=== PATIENT | male | born 1955 | race Hispanic/Latino ===

== ENCOUNTER 2020-11-19 10:34 | Inpatient (IN) | payer SELFPAY ==
--- NOTE | 2020-11-19 11:19 | RAD ---
Chest AP view INDICATION: History of Covid positive status with chest pain COMPARISON: None FINDINGS: Lungs: There is bilateral airspace opacities suspicious for multifocal pneumonia. Cardiac silhouette: The cardiomediastinal silhouette appears within normal limits. Pulmonary vasculature: Normal Pleural spaces: No pleural effusion or pneumothorax is demonstrated. Upper abdomen: No abnormality seen. Osseous structures: No acute osseous abnormality. Additional findings: None. IMPRESSION: Bilateral pneumonia
[2020-11-19] MEDS ORDERED: Acetaminophen 500 MG TAB ONE (11:24)
[2020-11-19 11:48] LABS: #Basophils 0.1 thou/uL (0.0-0.2); #Monocytes 0.2 thou/uL (0.11-0.59); #Neutrophils 9.6 thou/uL (1.40-6.50); %Basophils 0.5 % (0.0-1.0); %Eosinophils 0.1 % (0.0-10.0); %Lymphocytes 9.5 % (21.0-51.0); %Monocytes 2.2 % (0.0-10.0); %Neutrophils 87.7 % (42.0-75.0); Hemoglobin 16.6 g/dL (14.0-18.0); Mean Corpuscular HGB CONC 33.8 g/dL (32.0-36.0); Mean Corpuscular Hemoglobin 30.8 pg (27.0-31.0); Mean Corpuscular Volume 91.1 fL (78.0-98.0); Mean Platelet Volume 8.1 fL (7.4-10.4); Platelet Count 318 thou/uL (130-400); White Blood Cell (WBC) Count 10.9 thou/uL (4.8-10.8)
[2020-11-19 12:06] LABS: ALT (SGPT) 42 U/L (8-55); AST (SGOT) 52 U/L (5-34); Albumin 3.5 g/dL (3.4-4.8); Alkaline Phosphatase 132 U/L (40-110); Anion Gap 15 mmol/L (10-20); BUN (Urea Nitrogen) 17 mg/dL (8.4-25.7); Bilirubin, Total 0.6 mg/dL (0.2-1.2); Calc. Creatinine Clearance 0 mL/min (70-130); Calcium 8.6 mg/dL (7.8-10.44); Carbon Dioxide 24 mmol/L (23-31); Chloride 102 mmol/L (98-107); Globulin 3.7 g/dL (2.4-3.5); Glucose 139 mg/dL (80-115); Potassium 3.9 mmol/L (3.5-5.1); Protein, Total 7.2 g/dL (5.8-8.1); Sodium 137 mmol/L (136-145)
[2020-11-19] MEDS ORDERED: Aspirin Chewable 81 MG TAB ONE (12:19)
[2020-11-19] MEDS ORDERED: Iopamidol-370 76% 500 ML 1 ML ONE (14:07)
[2020-11-19] MEDS ORDERED: Azithromycin 500 MG VIAL ONE (14:54)
[2020-11-19] MEDS ORDERED: cefTRIAXone\\ROCEPHIN 2 GM VIAL ONE (14:54)
[2020-11-19] MEDS ORDERED: Dexamethasone 10 MG/ML VIAL ONE (14:54)
--- NOTE | 2020-11-19 16:18 | PDOC.HHP ---
Hospitalist HPI Covid History of Present Illness: Patient is a 65-year-old male who apparently tested positive for Covid 12 days ago. He reports he has had some cough with phlegm. He has had one episode of fever with a temperature of 100 degrees. Today the patient presented to the emergency department.'s been challenging to elucidate exactly why he presented to the emergency department. Sounds like he may have had some trouble with swallowing and some discomfort in his chest. He reports that he feels very hungry all the time but when he tries to swallow he has some difficulty taking in very much. Again having a very difficult time elucidating from him even with the help of a global account executive whether this is because of a mechanical type problem or if it is because he has something like nausea. He absolutely denies feeling short of breath. He has no dyspnea on exertion. 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 He has no shortness of breath with doing his job. ED Course: In the ER the patient had a chest x-ray revealing bilateral Covid pneumonia. Initially the plan was for discharge however at shift change the subsequent physician entered the room finding the patient with O2 sats in the 80s. He was subsequently placed on oxygen. Allergies/Adverse Reactions: Allergy/AdvReac Type Severity Reaction Status Date / Time No Known Allergies Allergy Unverified 11/19/20 16:32 Comments: No home medications Past History: PMHx: None PSHx: None FHx: Noncontributory Social: History of smoking but he has not smoked in over 30 years. Quit drinking alcohol 1 year ago. He is . Hospitalist HPI ROS Constitutional: reports: fever. denies: chills Respiratory: reports: cough. denies: shortness of breath, SOB with excertion Cardiovascular: reports: chest pain (Feels like an internal soreness) Gastrointestinal: denies: nausea, vomiting, abdominal pain, diarrhea, constipation All other systems reviewed; all pertinent +/- noted in HPI/Subj Hospitalist Exam General Appearance: NAD, awake alert Eye: PERRL, anicteric sclera ENT: normocephalic atraumatic, no oropharyngeal lesions, moist mucosa Neck: supple, symmetric, no JVD, no thyromegaly, no lymphadenopathy, no carotid bruit Heart: RRR, no murmur, no gallops, no rubs, normal peripheral pulses Respiratory: no wheezes, no ronchi, rales (Mild in the right base) Gastrointestinal: soft, non-tender, non-distended, normal bowel sounds, no palpable masses, no hepatomegaly, no splenomegaly, no bruit Extremities: no cyanosis, no clubbing, no edema Skin: normal turgor, no lesions, no rashes Neurological: no focal deficits Musculoskeletal: normal tone, normal strength, no muscle wasting Hospitalist Results Result Diagrams: 11/19/20 10:46 11/19/20 10:46 Lab results: Laboratory Last Values WBC 10.9 thou/uL (4.8-10.8) H 11/19/20 10:46 RBC 5.40 mill/uL (4.70-6.10) 11/19/20 10:46 Hgb 16.6 g/dL (14.0-18.0) 11/19/20 10:46 Hct 49.2 % (42.0-52.0) 11/19/20 10:46 MCV 91.1 fL (78.0-98.0) 11/19/20 10:46 MCH 30.8 pg (27.0-31.0) 11/19/20 10:46 MCHC 33.8 g/dL (32.0-36.0) 11/19/20 10:46 RDW 12.0 % (11.5-14.5) 11/19/20 10:46 Plt Count 318 thou/uL (130-400) 11/19/20 10:46 MPV 8.1 fL (7.4-10.4) 11/19/20 10:46 Neutrophils % 87.7 % (42.0-75.0) H 11/19/20 10:46 Lymphocytes % 9.5 % (21.0-51.0) L 11/19/20 10:46 Monocytes % 2.2 % (0.0-10.0) 11/19/20 10:46 Eosinophils % 0.1 % (0.0-10.0) 11/19/20 10:46 Basophils % 0.5 % (0.0-1.0) 11/19/20 10:46 Neutrophils # 9.6 thou/uL (1.40-6.50) H 11/19/20 10:46 Lymphocytes # 1.0 thou/uL (1.20-3.40) L 11/19/20 10:46 Monocytes # 0.2 thou/uL (0.11-0.59) 11/19/20 10:46 Eosinophils # 0.0 thou/uL (0.0-0.7) 11/19/20 10:46 Basophils # 0.1 thou/uL (0.0-0.2) 11/19/20 10:46 D-Dimer 0.75 *mcg/mL (0.27-0.43) H 11/19/20 10:46 Sodium 137 mmol/L (136-145) 11/19/20 10:46 Potassium 3.9 mmol/L (3.5-5.1) 11/19/20 10:46 Chloride 102 mmol/L (98-107) 11/19/20 10:46 Carbon Dioxide 24 mmol/L (23-31) 11/19/20 10:46 Anion Gap 15 mmol/L (10-20) 11/19/20 10:46 BUN 17 mg/dL (8.4-25.7) 11/19/20 10:46 Creatinine 1.03 mg/dL (0.7-1.3) 11/19/20 10:46 Estimated GFR (MDRD) 73 11/19/20 10:46 Glucose 139 mg/dL (80-115) H 11/19/20 10:46 Calcium 8.6 mg/dL (7.8-10.44) 11/19/20 10:46 Total Bilirubin 0.6 mg/dL (0.2-1.2) 11/19/20 10:46 AST 52 U/L (5-34) H 11/19/20 10:46 ALT 42 U/L (8-55) 11/19/20 10:46 Alkaline Phosphatase 132 U/L (40-110) H 11/19/20 10:46 Troponin I Less than 0.010 ng/mL (< 0.028) 11/19/20 10:46 B-Natriuretic Peptide Less than 10.0 pg/mL (0-100) 11/19/20 10:46 Serum Total Protein 7.2 g/dL (5.8-8.1) 11/19/20 10:46 Albumin 3.5 g/dL (3.4-4.8) 11/19/20 10:46 Globulin 3.7 g/dL (2.4-3.5) H 11/19/20 10:46 Albumin/Globulin Ratio 0.9 g/dL (1.2-2.2) L 11/19/20 10:46 Chest x-ray Status: report reviewed by me (Findings consistent with Covid pneumonia) EKG Status: image reviewed by me (Left anterior fascicular block with pulmonary disease pattern. Sinus rhythm. Nonischemic.) Hospitalist H&P A/P (1) Acute respiratory failure with hypoxia Code(s): J96.01 - ACUTE RESPIRATORY FAILURE WITH HYPOXIA Status: Acute (2) Pneumonia due to COVID-19 virus Code(s): U07.1 - COVID-19; J12.82 - PNEUMONIA DUE TO CORONAVIRUS DISEASE 2019 Status: Acute (3) Chest pain Code(s): R07.9 - CHEST PAIN, UNSPECIFIED Status: Acute Plan: Patient is a 62-year-old male who presented to the hospital approximately 12 days after testing positive for COVID-19. Difficult to ascertain exactly why he came today. Sounds like he is having some chest discomfort and phlegm production. He also reports some difficulty with swallowing but details have been difficult to obtain regarding that as well. Acute respiratory failure with hypoxia: Secondary to COVID-19 pneumonia. Patient has fairly dense infiltrate in his right lung on his chest x-ray. He initially was not significantly hypoxic and denies any shortness of breath even on exertion. He was noted to be hypoxic with O2 sats in the 80s by one of the ED physicians. He subsequently been started on oxygen therapy. Will monitor overnight and see if he can be weaned off the oxygen. Patient himself was quite surprised that he had hypoxia found. COVID-19 pneumonia: Patient was well outside the window for any antiviral interventions. We will check inflammatory markers. Decadron. Patient received antibiotics in the ER however I will not continue those at this time. Patient does have a CTA of the chest pending due to mildly elevated D-dimer. Further decisions on antibiotics could be made pending the results of that. Dysphagia: Again details are difficult to ascertain. Unclear if the patient is truly having a mechanical issue or if it simply more of a nausea or visceral reaction to eating. We will hydrate him overnight and assess his swallow. If it does appear to be more mechanical will consult GI. We will ask speech therapy to see him in the meantime. Chest pain: Sounds like this is more related to the Covid and cough. Will obtain serial enzymes and keep him on telemetry.
--- NOTE | 2020-11-19 16:33 | CT ---
CT ANGIOGRAM THORAX WITH IV CONTRAST AND 3-D RECONSTRUCTIONS CLINICAL INDICATION: Covid positive. Elevated d-dimer. Worsening shortness of breath. COMPARISON: None FINDINGS: Pulmonary arteries: No filling defects are seen in the pulmonary arteries to suggest a pulmonary embo rica. Aorta: Minimal vascular calcifications are seen in thoracic aorta. Thoracic aorta is normal in calibe r. Lungs: There are diffuse patchy and confluent groundglass densities seen throughout the lungs bilater ally greater on the right in a pattern most suggestive of Covid pneumonia. No pleural effusion is identified. The large airways appear patent. Mediastinum: The heart is mildly enlarged. Enlarged mediastinal and hilar lymph nodes are seen. Large st lymph node is seen in a subcarinal location measuring 1.3 cm in short axis dimension. Lymph nodes are likely reactive in origin. Thyroid gland: Normal CT appearance. Osseous structures: No suspicious lytic or sclerotic osseous lesion. Chest wall: No abnormality visualized. Upper abdomen: Within normal limits for phase of imaging. IMPRESSION: 1. Covid pneumonia with diffuse groundglass densities throughout the lungs bilaterally greater on the right. 2. No CT evidence of a pulmonary embolus. 3. Mediastinal and hilar lymphadenopathy likely reactive in origin. 4. Mild cardiomegaly
[2020-11-19 17:14] LABS: SARS-CoV-2 NAA Rapid Test DETECTED (NotDetected)
[2020-11-19] MEDS: Sodium Chloride 0.9% 1,000 ML IV SCH (19:41)
[2020-11-20 01:40] LABS: Troponin I Less than 0.010 ng/mL (< 0.028)
[2020-11-20 05:16] LABS: #Lymphocytes 0.8 thou/uL (1.20-3.40); #Monocytes 0.2 thou/uL (0.11-0.59); #Neutrophils 9.5 thou/uL (1.40-6.50); %Basophils 0.1 % (0.0-1.0); %Eosinophils 0.1 % (0.0-10.0); %Lymphocytes 7.5 % (21.0-51.0); %Monocytes 2.1 % (0.0-10.0); %Neutrophils 90.2 % (42.0-75.0); Mean Corpuscular HGB CONC 32.3 g/dL (32.0-36.0); Mean Corpuscular Hemoglobin 29.5 pg (27.0-31.0); Mean Corpuscular Volume 91.3 fL (78.0-98.0); Mean Platelet Volume 8.3 fL (7.4-10.4); Platelet Count 317 thou/uL (130-400); Red Blood Cell (RBC) Count 5.43 mill/uL (4.70-6.10); White Blood Cell (WBC) Count 10.5 thou/uL (4.8-10.8)
[2020-11-20 05:39] LABS: Anion Gap 15 mmol/L (10-20); BUN (Urea Nitrogen) 14 mg/dL (8.4-25.7); Calc. Creatinine Clearance 90 mL/min (70-130); Carbon Dioxide 22 mmol/L (23-31); Chloride 108 mmol/L (98-107); Glucose 205 mg/dL (80-115); Potassium 4.5 mmol/L (3.5-5.1); Sodium 140 mmol/L (136-145)
[2020-11-20] MEDS: Sodium Chloride 0.9% 1,000 ML IV SCH (06:39)
[2020-11-20] MEDS ORDERED: Dexamethasone 4 MG TAB PO SCH (08:00)
[2020-11-20] MEDS ORDERED: FLU VACC QS2020-21(6MOS UP)/PF 60 MCG/0.5 ML SYRINGE IM ONE (09:00)
[2020-11-20] MEDS: Enoxaparin Sodium 40 MG/0.4 ML SYRINGE SC SCH (10:23)
--- NOTE | 2020-11-20 11:25 | PDOC.HOSPP ---
- Subjective Encounter Date: 11/20/20 Encounter Time: 10:00 Subjective: F/u: COVID The patient feels much better. He states his back pain and leg cramps have resolved. He is able to walk now with assistance. He did lose his taste yesterday but his appetite has improved now . I weaned him down to room air and after five minutes his oxygen sat dropped down to 88 while he was sitting up and took a while to recover despite deep breaths. He was placed back on 2.5-3L . When his oxygen dropped, he reported chest heaviness Per nurse, he has some blood tinged sputum Pt states he hasn't seen a doctor in years, [place] - Objective Vital Signs & Weight: Vital Signs (12 hours) Temp Pulse Resp BP Pulse Ox 11/20/20 09:00 99.1 F 76 28 H 113/56 L 90 L 11/20/20 05:00 98.2 F 84 24 H 123/70 94 L 11/20/20 00:12 98.1 F 74 16 110/67 94 L Weight Weight 154 lb I&O: 11/19/20 11/20/20 11/21/20 06:59 06:59 06:59 Intake Total 760 Output Total 800 Balance 760 -800 Result Diagrams: 11/20/20 04:40 11/20/20 04:40 Additional Labs: Accuchecks 11/20/20 00:16 POC Glucose 190 H Hospitalist ROS - Review of Systems Constitutional: denies: fever, chills Cardiovascular: reports: other (chest heaviness when takes a deep breath) - Medication Medications: Active Medications Generic Name Dose Route Start Last Admin Trade Name Sam PRN Reason Stop Dose Admin Dexamethasone 6 mg 11/20/20 08:00 11/20/20 10:31 Dexamethasone 4 Mg Tab PO 6 mg QAM-WM ROD Administration Enoxaparin Sodium 40 mg 11/20/20 09:00 11/20/20 10:23 Enoxaparin Sodium 40 Mg/0.4 Ml Syringe SC 40 mg 0900 ROD Administration Sodium Chloride 1,000 mls @ 75 mls/hr 11/19/20 16:15 11/20/20 06:39 Normal Saline 0.9% IV 1,000 mls .[id number] ROD Administration Hospitalist Exam Vitals: Vital Signs (12 hours) Temp Pulse Resp BP Pulse Ox 11/20/20 09:00 99.1 F 76 28 H 113/56 L 90 L 11/20/20 05:00 98.2 F 84 24 H 123/70 94 L 11/20/20 00:12 98.1 F 74 16 110/67 94 L Weight Weight 154 lb General Appearance: NAD, awake alert Eye: PERRL, anicteric sclera ENT: normocephalic atraumatic, no oropharyngeal lesions Neck: no JVD Heart: RRR, no murmur, no gallops, no rubs Respiratory: CTAB, no wheezes, no rales, no ronchi Gastrointestinal: soft, non-tender, non-distended, normal bowel sounds Extremities: no cyanosis, no clubbing, no edema Skin: normal turgor, no lesions Neurological: cranial nerve grossly intact, normal sensation to touch, no weakness Hosp A/P - Plan CTA: mild cardiomegaly. Mediastinal and hilar LAD. Diffuse ground glass d ensities bilaterally This is a 65 year old male with no PMH who presented with myalgias and short ness of breath, found to have COVID pneumonia Acute hypoxic respiratory failure secondary to COVID - the patient is still hypoxic on room air. Continue dexamethasone. Will repeat LFTS to see if they are downtrending, and if they are will try to see if I can order remdesivir; he is currently at the 10 day tima - continue steroids - will hold off on any antibiotics for now since he seems to be improving - will stop fluids Transaminitis - possibly dehydration - will repeat LFTS. No abdominal pain currently Lekuocytosis - resolved
[2020-11-20 11:53] LABS: Hemoglobin A1c 6.5 % (4.0-6.0)
[2020-11-20 11:58] LABS: ALT (SGPT) 36 U/L (8-55); AST (SGOT) 42 U/L (5-34); Albumin 3.2 g/dL (3.4-4.8); Alkaline Phosphatase 119 U/L (40-110); Bilirubin, Direct 0.2 mg/dL (0.1-0.3); Bilirubin, Total 0.3 mg/dL (0.2-1.2); Protein, Total 6.6 g/dL (5.8-8.1)
[2020-11-20 22:48] VITALS: BMI 28.5
[2020-11-21 06:12] LABS: ALT (SGPT) 27 U/L (8-55); AST (SGOT) 31 U/L (5-34); Albumin 2.9 g/dL (3.4-4.8); Alkaline Phosphatase 102 U/L (40-110); Bilirubin, Direct 0.2 mg/dL (0.1-0.3); Bilirubin, Total 0.4 mg/dL (0.2-1.2); Protein, Total 6.1 g/dL (5.8-8.1)
[2020-11-21] MEDS ORDERED: Dexamethasone 10 MG in Sodium Chloride 0.9% 50 ML IVPB SCH (09:00)
[2020-11-21] MEDS: Enoxaparin Sodium 40 MG/0.4 ML SYRINGE SC SCH ×2 (10:26→21:11)
--- NOTE | 2020-11-21 15:11 | PDOC.HOSPP ---
- Subjective Encounter Date: 11/21/20 Encounter Time: 12:45 Subjective: pt up in bed no complains - Objective Vital Signs & Weight: Vital Signs (12 hours) Temp Pulse Resp BP Pulse Ox 11/21/20 14:39 94 L 11/21/20 11:00 98.0 F 62 38 H 160/72 H 91 L 11/21/20 08:00 91 L 11/21/20 07:55 98.5 F 62 38 H 125/69 93 L 11/21/20 05:18 98.5 F 66 24 H 136/69 91 L Weight Weight 156 lb I&O: 11/20/20 11/21/20 11/22/20 06:59 06:59 06:59 Intake Total 760 Output Total 1500 250 Balance 760 -1500 -250 Result Diagrams: 11/20/20 04:40 11/20/20 04:40 Hospitalist ROS - Review of Systems Cardiovascular: denies: chest pain, palpitations, orthopnea, paroxysmal noc. dyspnea, edema, light headedness, other Gastrointestinal: denies: nausea, vomiting, abdominal pain, diarrhea, constipation, melena, hematochezia, other Genitourinary: denies: dysuria, frequency, incontinence, hematuria, retention, other Hospitalist Exam Vitals: Vital Signs (12 hours) Temp Pulse Resp BP Pulse Ox 11/21/20 14:39 94 L 11/21/20 11:00 98.0 F 62 38 H 160/72 H 91 L 11/21/20 08:00 91 L 11/21/20 07:55 98.5 F 62 38 H 125/69 93 L 11/21/20 05:18 98.5 F 66 24 H 136/69 91 L Weight Weight 156 lb Neck: supple, symmetric Heart: RRR, no murmur Respiratory: no wheezes, no rales, no ronchi Gastrointestinal: soft, non-tender, normal bowel sounds Extremities: no edema Hosp A/P (1) Acute respiratory failure with hypoxia Code(s): J96.01 - ACUTE RESPIRATORY FAILURE WITH HYPOXIA Status: Acute (2) Pneumonia due to COVID-19 virus Code(s): U07.1 - COVID-19; J12.82 - PNEUMONIA DUE TO CORONAVIRUS DISEASE 2019 Status: Acute (3) Diabetes Code(s): E11.9 - TYPE 2 DIABETES MELLITUS WITHOUT COMPLICATIONS Status: Acute - Plan will continue steroids. pt on dvt ppx. will start pt on oral inhaler. pt not a candidate for remdesivir.
[2020-11-21 17:28] LABS: Troponin I 0.015 ng/mL (< 0.028)
[2020-11-22 06:04] LABS: #Basophils 0.1 thou/uL (0.0-0.2); #Lymphocytes 0.8 thou/uL (1.20-3.40); #Neutrophils 9.1 thou/uL (1.40-6.50); %Basophils 0.6 % (0.0-1.0); %Eosinophils 0.2 % (0.0-10.0); %Lymphocytes 7.3 % (21.0-51.0); %Monocytes 9.2 % (0.0-10.0); %Neutrophils 82.8 % (42.0-75.0); Hemoglobin 14.7 g/dL (14.0-18.0); Mean Corpuscular HGB CONC 33.9 g/dL (32.0-36.0); Mean Corpuscular Hemoglobin 30.7 pg (27.0-31.0); Mean Corpuscular Volume 90.5 fL (78.0-98.0); Mean Platelet Volume 8.6 fL (7.4-10.4); Platelet Count 397 thou/uL (130-400); RBC Distribution Width 11.9 % (11.5-14.5); Red Blood Cell (RBC) Count 4.79 mill/uL (4.70-6.10)
[2020-11-22 06:11] LABS: PTT 27.7 sec (22.9-36.1); Prothrombin Time 13.2 sec (12.0-14.7)
[2020-11-22 06:22] LABS: Anion Gap 13 mmol/L (10-20); BUN (Urea Nitrogen) 19 mg/dL (8.4-25.7); CRP (Inflammatory) 1.68 mg/dL (= or < 0.5); Calc. Creatinine Clearance 102 mL/min (70-130); Calcium 7.9 mg/dL (7.8-10.44); Carbon Dioxide 21 mmol/L (23-31); Chloride 109 mmol/L (98-107); Glucose 167 mg/dL (80-115); Potassium 3.9 mmol/L (3.5-5.1); Sodium 139 mmol/L (136-145)
[2020-11-22] MEDS: Mometasone 200 MCG/Formoterol 5 MCG 120 PUFF INHALER INH SCH ×3 (08:21→18:18)
[2020-11-22] MEDS: Dexamethasone 4 mg/ml Vial SLOW IVP SCH (11:10)
[2020-11-22] MEDS: Enoxaparin Sodium 40 MG/0.4 ML SYRINGE SC SCH ×2 (11:11→20:33)
--- NOTE | 2020-11-22 14:38 | PDOC.HOSPP ---
- Subjective Encounter Date: 11/22/20 Encounter Time: 10:45 Subjective: pt up in bed no complains. - Objective Vital Signs & Weight: Vital Signs (12 hours) Temp Pulse Resp BP Pulse Ox 11/22/20 08:00 97.8 F 51 L 26 H 123/56 L 96 11/22/20 07:54 94 L 11/22/20 04:35 98.5 F 61 22 H 116/61 94 L 11/22/20 02:51 98 Weight Weight 156 lb I&O: 11/21/20 11/22/20 11/23/20 06:59 06:59 06:59 Output Total 1500 250 Balance -1500 -250 Result Diagrams: 11/22/20 05:32 11/22/20 05:32 Hospitalist ROS - Review of Systems Cardiovascular: denies: chest pain, palpitations, orthopnea, paroxysmal noc. dyspnea, edema, light headedness, other Gastrointestinal: denies: nausea, vomiting, abdominal pain, diarrhea, constipation, melena, hematochezia, other Genitourinary: denies: dysuria, frequency, incontinence, hematuria, retention, other - Medication Medications: Active Medications Generic Name Dose Route Start Last Admin Trade Name Freq PRN Reason Stop Dose Admin Dexamethasone 6 mg 11/22/20 09:00 11/22/20 11:10 Dexamethasone 4 Mg/Ml Vial SLOW IVP 6 mg DAILY ROD Administration Enoxaparin Sodium 40 mg 11/21/20 21:00 11/22/20 11:11 Enoxaparin Sodium 40 Mg/0.4 Ml Syringe SC 40 mg BID ROD Administration Mometasone Furoate/Formoterol Fumar 2 puff 11/21/20 18:30 11/22/20 08:22 Mometasone 200 Mcg/Formoterol 5 Mcg 120 Puff Inhaler INH Not Given BID-RT ROD Pantoprazole Sodium 40 mg 11/22/20 09:00 11/22/20 11:11 Pantoprazole 40 Mg Tab PO 40 mg DAILY ROD Administration Hospitalist Exam Vitals: Vital Signs (12 hours) Temp Pulse Resp BP Pulse Ox 11/22/20 08:00 97.8 F 51 L 26 H 123/56 L 96 11/22/20 07:54 94 L 11/22/20 04:35 98.5 F 61 22 H 116/61 94 L 11/22/20 02:51 98 Weight Weight 156 lb Neck: supple Heart: RRR, no murmur Respiratory: no wheezes, no rales, no ronchi Gastrointestinal: soft, non-distended Hosp A/P (1) Acute respiratory failure with hypoxia Code(s): J96.01 - ACUTE RESPIRATORY FAILURE WITH HYPOXIA Status: Acute (2) Pneumonia due to COVID-19 virus Code(s): U07.1 - COVID-19; J12.82 - PNEUMONIA DUE TO CORONAVIRUS DISEASE 2019 Status: Acute (3) Diabetes Code(s): E11.9 - TYPE 2 DIABETES MELLITUS WITHOUT COMPLICATIONS Status: Acute - Plan will continue steroids. pt on dvt ppx. will start pt on oral inhaler. pt not a candidate for remdesivir. 11/22 pt now on high flow. he is eating i did call pt's daughter and updated her.
[2020-11-23] MEDS: Mometasone 200 MCG/Formoterol 5 MCG 120 PUFF INHALER INH SCH ×2 (05:48→18:19)
[2020-11-23] MEDS ORDERED: Acetaminophen 325 MG TAB PO PRN (10:05)
--- NOTE | 2020-11-23 10:22 | PDOC.HOSPP ---
- Subjective Encounter Date: 11/23/20 Encounter Time: 10:23 Subjective: F/u: COVID The patient has been having mild hemoptysis. He desaturates when he coughs per nursing staff. He reports pleuritic chest pain . He is currently on high flow nasal cannula . - Objective Vital Signs & Weight: Vital Signs (12 hours) Temp Pulse Resp BP Pulse Ox 11/23/20 08:20 98.1 F 59 L 28 H 133/65 90 L 11/23/20 08:09 93 L 11/23/20 03:00 98.4 F 52 L 24 H 155/79 H 94 L 11/23/20 02:36 94 L 11/22/20 23:00 92 L Weight Weight 156 lb I&O: 11/22/20 11/23/20 11/24/20 06:59 06:59 06:59 Output Total 250 650 Balance -250 -650 Result Diagrams: 11/22/20 05:32 11/22/20 05:32 Hospitalist ROS - Review of Systems Constitutional: denies: fever, chills - Medication Medications: Active Medications Generic Name Dose Route Start Last Admin Trade Name Freq PRN Reason Stop Dose Admin Dexamethasone 6 mg 11/22/20 09:00 11/22/20 11:10 Dexamethasone 4 Mg/Ml Vial SLOW IVP 6 mg DAILY ROD Administration Enoxaparin Sodium 40 mg 11/21/20 21:00 11/22/20 20:33 Enoxaparin Sodium 40 Mg/0.4 Ml Syringe SC 40 mg BID ROD Administration Mometasone Furoate/Formoterol Fumar 2 puff 11/21/20 18:30 11/23/20 05:48 Mometasone 200 Mcg/Formoterol 5 Mcg 120 Puff Inhaler INH 2 puff BID-RT ROD Administration Pantoprazole Sodium 40 mg 11/22/20 09:00 11/22/20 11:11 Pantoprazole 40 Mg Tab PO 40 mg DAILY ROD Administration Hospitalist Exam Vitals: Vital Signs (12 hours) Temp Pulse Resp BP Pulse Ox 11/23/20 08:20 98.1 F 59 L 28 H 133/65 90 L 11/23/20 08:09 93 L 11/23/20 03:00 98.4 F 52 L 24 H 155/79 H 94 L 11/23/20 02:36 94 L 11/22/20 23:00 92 L Weight Weight 156 lb General Appearance: NAD, awake alert Eye: PERRL, anicteric sclera ENT: normocephalic atraumatic, no oropharyngeal lesions Neck: no JVD Heart: RRR, no murmur, no gallops, no rubs Respiratory: CTAB, no wheezes, no rales, no ronchi Gastrointestinal: soft, non-tender, non-distended, normal bowel sounds Extremities: no cyanosis, no clubbing, no edema Skin: normal turgor, no lesions, no rashes Neurological: cranial nerve grossly intact, normal sensation to touch, no we akness Hosp A/P - Plan CTA: mild cardiomegaly. Mediastinal and hilar LAD. Diffuse ground glass densities bilaterally This is a 65 year old male with no PMH who presented with myalgias and shortness of breath, found to have COVID pneumonia Acute hypoxic respiratory failure secondary to COVID - the patient is now on high flow nasal cannula. Continue IV dexamethasone. - repeat chest Xray since his oxygen requirement has gotten worst over the past few days. Consider antibiotics if worst - will continue to monitor, guarded prognosis Hemoptysis - likely from pneumonia - will repeat CBC today since patient is on lovenox BID - will repeat chest X ray Transaminitis - resolved Leukocytosis - resolved
[2020-11-23] MEDS: Enoxaparin Sodium 40 MG/0.4 ML SYRINGE SC SCH ×2 (10:38→20:01)
[2020-11-23] MEDS: Dexamethasone 4 mg/ml Vial SLOW IVP SCH (10:39)
[2020-11-23 11:18] LABS: Mean Corpuscular HGB CONC 34.2 g/dL (32.0-36.0); Mean Corpuscular Hemoglobin 30.8 pg (27.0-31.0); Mean Corpuscular Volume 89.9 fL (78.0-98.0); Mean Platelet Volume 8.5 fL (7.4-10.4); Platelet Count 430 thou/uL (130-400); RBC Distribution Width 11.6 % (11.5-14.5); Red Blood Cell (RBC) Count 4.89 mill/uL (4.70-6.10); White Blood Cell (WBC) Count 11.8 thou/uL (4.8-10.8)
--- NOTE | 2020-11-23 12:08 | RAD ---
PORTABLE CHEST 1 VIEW: DATE; 11/23/2020. TIME: 10:26 AM. HISTORY: Hemoptysis. COVID positive. COMPARISON: 11/19/2020. FINDINGS: The heart size is normal. There is interval worsening of bilateral patchy multifocal opacities in th e lung parenchyma. No pneumothoraces or pleural effusions are seen. IMPRESSION: Interval worsening of bilateral pneumonia. POS: [facility]
[2020-11-24] MEDS: Dexamethasone 4 mg/ml Vial SLOW IVP SCH (07:45)
[2020-11-24] MEDS: Mometasone 200 MCG/Formoterol 5 MCG 120 PUFF INHALER INH SCH ×2 (07:45→18:28)
[2020-11-24] MEDS: Enoxaparin Sodium 40 MG/0.4 ML SYRINGE SC SCH ×2 (07:46→21:55)
--- NOTE | 2020-11-24 13:43 | PDOC.HOSPP ---
- Subjective Encounter Date: 11/24/20 Encounter Time: 11:20 Subjective: Patient up in bed states he feels much better. - Objective Vital Signs & Weight: Vital Signs (12 hours) Temp Pulse Resp BP Pulse Ox 11/24/20 11:34 98.1 F 77 20 100/61 100 11/24/20 09:22 93 L 11/24/20 08:08 98 F 72 24 H 123/68 92 L Weight Weight 156 lb I&O: 11/23/20 11/24/20 11/25/20 06:59 06:59 06:59 Intake Total 360 Output Total 650 275 400 Balance -650 -275 -40 Result Diagrams: 11/23/20 10:40 11/22/20 05:32 Hospitalist ROS - Review of Systems Respiratory: denies: cough, dry, shortness of breath, hemoptysis, SOB with excertion, pleuritic pain, sputum, wheezing, other Cardiovascular: denies: chest pain, palpitations, orthopnea, paroxysmal noc. dyspnea, edema, light headedness, other Gastrointestinal: denies: nausea, vomiting, abdominal pain, diarrhea, constipation, melena, hematochezia, other - Medication Medications: Active Medications Generic Name Dose Route Start Last Admin Trade Name Freq PRN Reason Stop Dose Admin Dexamethasone 6 mg 11/22/20 09:00 11/24/20 07:45 Dexamethasone 4 Mg/Ml Vial SLOW IVP 6 mg DAILY ROD Administration Enoxaparin Sodium 40 mg 11/21/20 21:00 11/24/20 07:46 Enoxaparin Sodium 40 Mg/0.4 Ml Syringe SC 40 mg BID ROD Administration Mometasone Furoate/Formoterol Fumar 2 puff 11/21/20 18:30 11/24/20 07:45 Mometasone 200 Mcg/Formoterol 5 Mcg 120 Puff Inhaler INH 2 puff BID-RT ROD Administration Pantoprazole Sodium 40 mg 11/22/20 09:00 11/24/20 07:46 Pantoprazole 40 Mg Tab PO 40 mg DAILY ROD Administration Hospitalist Exam Vitals: Vital Signs (12 hours) Temp Pulse Resp BP Pulse Ox 11/24/20 11:34 98.1 F 77 20 100/61 100 11/24/20 09:22 93 L 11/24/20 08:08 98 F 72 24 H 123/68 92 L Weight Weight 156 lb Neck: supple Heart: RRR, no murmur, no gallops Respiratory: no wheezes, no rales, no ronchi Gastrointestinal: soft, non-tender, normal bowel sounds Hosp A/P (1) Acute respiratory failure with hypoxia Code(s): J96.01 - ACUTE RESPIRATORY FAILURE WITH HYPOXIA Status: Acute (2) Pneumonia due to COVID-19 virus Code(s): U07.1 - COVID-19; J12.82 - PNEUMONIA DUE TO CORONAVIRUS DISEASE 2019 Status: Acute (3) Diabetes Code(s): E11.9 - TYPE 2 DIABETES MELLITUS WITHOUT COMPLICATIONS Status: Acute - Plan will continue steroids. pt on dvt ppx. will start pt on oral inhaler. pt not a candidate for remdesivir. 2 pt now on high flow. he is eating i did call pt's daughter and updated her. 2 patient is on high flow sats are 98% when he sits up. I have asked the nurse to lower the FiO2. Patient's inflammatory markers are improving. He is eating. Will encourage to use incentive spirometer we will continue to monitor continue Lovenox twice daily dosing
[2020-11-24 14:45] LABS: Anion Gap 17 mmol/L (10-20); BUN (Urea Nitrogen) 18 mg/dL (8.4-25.7); CRP (Inflammatory) 7.75 mg/dL (= or < 0.5); Calc. Creatinine Clearance 91 mL/min (70-130); Calcium 8.2 mg/dL (7.8-10.44); Carbon Dioxide 17 mmol/L (23-31); Chloride 104 mmol/L (98-107); Glucose 313 mg/dL (80-115); Potassium 4.1 mmol/L (3.5-5.1); Sodium 134 mmol/L (136-145)
[2020-11-24 14:49] LABS: Band 6 % (5-11); Hemoglobin 15.4 g/dL (14.0-18.0); Lymphocytes 4 % (21-51); MDiff Complete? YES; Mean Corpuscular Hemoglobin 29.4 pg (27.0-31.0); Mean Corpuscular Volume 89.2 fL (78.0-98.0); Mean Platelet Volume 8.6 fL (7.4-10.4); Monocytes 9 % (0-10); Neutrophil 78 % (42-75); Nucleated RBC 2 % (0); Platelet Count 500 thou/uL (130-400); Platelet Morphology Comment Appears Increased; Polychromasia MODERATE = 3-4 cells (100X) (0-2/hpf); Reactive Lymphocytes 3 % (0-10); Red Blood Cell (RBC) Count 5.23 mill/uL (4.70-6.10); Tear Drops SLIGHT = 2-5 cells (100X) (0-1/hpf); White Blood Cell (WBC) Count 12.1 thou/uL (4.8-10.8)
[2020-11-24] MEDS: Colchicine 0.6 MG TAB PO SCH (21:54)
[2020-11-25] MEDS: Mometasone 200 MCG/Formoterol 5 MCG 120 PUFF INHALER INH SCH ×2 (06:42→16:46)
[2020-11-25] MEDS: Enoxaparin Sodium 40 MG/0.4 ML SYRINGE SC SCH ×2 (07:36→21:42)
[2020-11-25] MEDS: Dexamethasone 4 mg/ml Vial SLOW IVP SCH (07:36)
[2020-11-25] MEDS: Colchicine 0.6 MG TAB PO SCH ×2 (07:36→21:41)
[2020-11-25] MEDS ORDERED: Dextrose 5% in Water 1,000 ML IV PRN (09:57)
[2020-11-25] MEDS ORDERED: Dextrose 50% Abboject 50 ML SYRINGE SLOW IVP PRN (09:57)
[2020-11-25] MEDS: HumaLOG 300 UNITS/3 ML VIAL SC PRN ×2 (11:30→16:38)
[2020-11-25] MEDS ORDERED: Sodium Chloride 0.65% Nasal 44 ML BOT EA NARE PRN (22:03)
[2020-11-26] MEDS: Mometasone 200 MCG/Formoterol 5 MCG 120 PUFF INHALER INH SCH ×2 (04:56→16:41)
[2020-11-26 05:06] LABS: Prothrombin Time 12.9 sec (12.0-14.7)
[2020-11-26 05:14] LABS: Anion Gap 13 mmol/L (10-20); BUN (Urea Nitrogen) 18 mg/dL (8.4-25.7); CRP (Inflammatory) 10.44 mg/dL (= or < 0.5); Calc. Creatinine Clearance 100 mL/min (70-130); Calcium 8.1 mg/dL (7.8-10.44); Carbon Dioxide 22 mmol/L (23-31); Chloride 106 mmol/L (98-107); Glucose 114 mg/dL (80-115); Sodium 137 mmol/L (136-145)
[2020-11-26 05:54] LABS: Band 9 % (5-11); Eosinophils 2 % (0-10); Hemoglobin 14.5 g/dL (14.0-18.0); Lymphocytes 10 % (21-51); MDiff Complete? YES; Mean Corpuscular HGB CONC 33.3 g/dL (32.0-36.0); Mean Corpuscular Hemoglobin 30.3 pg (27.0-31.0); Mean Platelet Volume 8.2 fL (7.4-10.4); Monocytes 7 % (0-10); Neutrophil 72 % (42-75); Platelet Count 484 thou/uL (130-400); Platelet Morphology Comment Appears Increased; Red Blood Cell (RBC) Count 4.77 mill/uL (4.70-6.10); White Blood Cell (WBC) Count 13.2 thou/uL (4.8-10.8)
[2020-11-26] MEDS: Colchicine 0.6 MG TAB PO SCH ×2 (08:25→21:51)
[2020-11-26] MEDS: Dexamethasone 4 mg/ml Vial SLOW IVP SCH (08:25)
[2020-11-26] MEDS: Enoxaparin Sodium 40 MG/0.4 ML SYRINGE SC SCH ×2 (08:26→21:51)
[2020-11-26] MEDS ORDERED: Insulin Glargine 4 UNITS in Pre-Filled Syringe 1 EACH SC SCH (09:45)
[2020-11-26] MEDS: HumaLOG 300 UNITS/3 ML VIAL SC PRN ×2 (10:20→16:37)
--- NOTE | 2020-11-26 18:00 | PDOC.HOSPP ---
- Subjective Encounter Date: 11/25/20 Encounter Time: 10:30 Subjective: Patient up in bed denies any complaints. - Objective Vital Signs & Weight: Vital Signs (12 hours) Temp Pulse Resp BP Pulse Ox 11/26/20 11:59 94 L 11/26/20 10:36 98.3 F 75 19 104/63 11/26/20 08:53 93 L 11/26/20 08:41 91 L 11/26/20 08:15 98.4 F 74 22 H 114/58 L 93 L Weight Weight 156 lb I&O: 11/25/20 11/26/20 11/27/20 06:59 06:59 06:59 Intake Total 940 500 Output Total 651 850 Balance 289 -350 Result Diagrams: 11/26/20 04:26 11/26/20 04:26 Additional Labs: Accuchecks 11/26/20 11/26/20 11/25/20 16:28 10:13 20:28 POC Glucose 201 H 265 H 266 H Hospitalist ROS - Review of Systems Cardiovascular: denies: chest pain, palpitations, orthopnea, paroxysmal noc. dyspnea, edema, light headedness, other Gastrointestinal: denies: nausea, vomiting, abdominal pain, diarrhea, constipation, melena, hematochezia, other Genitourinary: denies: dysuria, frequency, incontinence, hematuria, retention, other - Medication Medications: Active Medications Generic Name Dose Route Start Last Admin Trade Name Freq PRN Reason Stop Dose Admin Acetaminophen 650 mg 11/23/20 10:05 11/25/20 07:37 Acetaminophen 325 Mg Tab PO 650 mg Q8H PRN Administration Mild-Moderate Pain (1-5) Colchicine 0.6 mg 11/24/20 21:00 11/26/20 08:25 Colchicine 0.6 Mg Tab PO 0.6 mg BID ROD Administration Dexamethasone 6 mg 11/22/20 09:00 11/26/20 08:25 Dexamethasone 4 Mg/Ml Vial SLOW IVP 6 mg DAILY ROD Administration Enoxaparin Sodium 40 mg 11/21/20 21:00 11/26/20 08:26 Enoxaparin Sodium 40 Mg/0.4 Ml Syringe SC 40 mg BID ROD Administration Doxycycline Hyclate 100 mg/ 100 mls @ 100 mls/hr 11/24/20 17:00 02/05/21 16:41 Sodium Chloride IVPB 100 mls 0500,1700 ROD Administration Insulin Human Lispro 0 units 11/25/20 09:57 11/26/20 16:37 Humalog 300 Units/3 Ml Vial SC 3 unit .MILD SLIDING SCALE PRN Administration Mild Correctional Scale Mometasone Furoate/Formoterol Fumar 2 puff 11/21/20 18:30 11/26/20 16:41 Mometasone 200 Mcg/Formoterol 5 Mcg 120 Puff Inhaler INH 2 puff BID-RT ROD Administration Pantoprazole Sodium 40 mg 11/22/20 09:00 11/26/20 08:25 Pantoprazole 40 Mg Tab PO 40 mg DAILY ROD Administration Hospitalist Exam Vitals: Vital Signs (12 hours) Temp Pulse Resp BP Pulse Ox 11/26/20 11:59 94 L 11/26/20 10:36 98.3 F 75 19 104/63 11/26/20 08:53 93 L 11/26/20 08:41 91 L 11/26/20 08:15 98.4 F 74 22 H 114/58 L 93 L Weight Weight 156 lb Neck: supple Heart: RRR, no rubs Respiratory: no wheezes, no rales Gastrointestinal: soft, non-tender, normal bowel sounds Hosp A/P (1) Acute respiratory failure with hypoxia Code(s): J96.01 - ACUTE RESPIRATORY FAILURE WITH HYPOXIA Status: Acute (2) Pneumonia due to COVID-19 virus Code(s): U07.1 - COVID-19; J12.82 - PNEUMONIA DUE TO CORONAVIRUS DISEASE 2019 Status: Acute (3) Diabetes Code(s): E11.9 - TYPE 2 DIABETES MELLITUS WITHOUT COMPLICATIONS Status: Acute - Plan will continue steroids. pt on dvt ppx. will start pt on oral inhaler. pt not a candidate for remdesivir. 2 pt now on high flow. he is eating i did call pt's daughter and updated her. 2/3 patient is on high flow sats are 98% when he sits up. I have asked the nurse to lower the FiO2. Patient's inflammatory markers are improving. He is eating. Will encourage to use incentive spirometer we will continue to monitor continue Lovenox twice daily dosing 2/4 continue high flow as nursing staff to continue to titrate oxygen down. Patient clinically appears well. We will continue to trend CRP. Patient on DVT prophylaxis. Hemoglobin A1c of 6.5. We will add low-dose insulin. Sugars are high most likely secondary to steroids and additional to his new diagnosed diabetes
--- NOTE | 2020-11-26 18:01 | PDOC.HOSPP ---
- Subjective Encounter Date: 11/26/20 Encounter Time: 10:00 Subjective: Patient up in bed no complaints - Objective Vital Signs & Weight: Vital Signs (12 hours) Temp Pulse Resp BP Pulse Ox 11/26/20 11:59 94 L 11/26/20 10:36 98.3 F 75 19 104/63 11/26/20 08:53 93 L 11/26/20 08:41 91 L 11/26/20 08:15 98.4 F 74 22 H 114/58 L 93 L Weight Weight 156 lb I&O: 11/25/20 11/26/20 11/27/20 06:59 06:59 06:59 Intake Total 940 500 Output Total 651 850 Balance 289 -350 Result Diagrams: 11/26/20 04:26 11/26/20 04:26 Additional Labs: Accuchecks 11/26/20 11/26/20 11/25/20 16:28 10:13 20:28 POC Glucose 201 H 265 H 266 H Hospitalist ROS - Review of Systems Cardiovascular: denies: chest pain, palpitations, orthopnea, paroxysmal noc. dyspnea, edema, light headedness, other Gastrointestinal: denies: nausea, vomiting, abdominal pain, diarrhea, cons tipation, melena, hematochezia, other Genitourinary: denies: dysuria, frequency, incontinence, hematuria, retention, other - Medication Medications: Active Medications Generic Name Dose Route Start Last Admin Trade Name Freq PRN Reason Stop Dose Admin Acetaminophen 650 mg 11/23/20 10:05 11/25/20 07:37 Acetaminophen 325 Mg Tab PO 650 mg Q8H PRN Administration Mild-Moderate Pain (1-5) Colchicine 0.6 mg 11/24/20 21:00 11/26/20 08:25 Colchicine 0.6 Mg Tab PO 0.6 mg BID ROD Administration Dexamethasone 6 mg 11/22/20 09:00 11/26/20 08:25 Dexamethasone 4 Mg/Ml Vial SLOW IVP 6 mg DAILY ROD Administration Enoxaparin Sodium 40 mg 11/21/20 21:00 11/26/20 08:26 Enoxaparin Sodium 40 Mg/0.4 Ml Syringe SC 40 mg BID ROD Administration Doxycycline Hyclate 100 mg/ 100 mls @ 100 mls/hr 11/24/20 17:00 11/26/20 16:41 Sodium Chloride IVPB 100 mls 0500,1700 ROD Administration Insulin Human Lispro 0 units 11/25/20 09:57 11/26/20 16:37 Humalog 300 Units/3 Ml Vial SC 3 unit .MILD SLIDING SCALE PRN Administration Mild Correctional Scale Mometasone Furoate/Formoterol Fumar 2 puff 11/21/20 18:30 11/26/20 16:41 Mometasone 200 Mcg/Formoterol 5 Mcg 120 Puff Inhaler INH 2 puff BID-RT ROD Administration Pantoprazole Sodium 40 mg 11/22/20 09:00 11/26/20 08:25 Pantoprazole 40 Mg Tab PO 40 mg DAILY ROD Administration Hospitalist Exam Vitals: Vital Signs (12 hours) Temp Pulse Resp BP Pulse Ox 11/26/20 11:59 94 L 11/26/20 10:36 98.3 F 75 19 104/63 11/26/20 08:53 93 L 11/26/20 08:41 91 L 11/26/20 08:15 98.4 F 74 22 H 114/58 L 93 L Weight Weight 156 lb Neck: supple Heart: no murmur, no gallops Respiratory: no wheezes, no ronchi Gastrointestinal: soft, non-tender, normal bowel sounds Extremities: 1+ LE edema Hosp A/P (1) Acute respiratory failure with hypoxia Code(s): J96.01 - ACUTE RESPIRATORY FAILURE WITH HYPOXIA Status: Acute (2) Pneumonia due to COVID-19 virus Code(s): U07.1 - COVID-19; J12.82 - PNEUMONIA DUE TO CORONAVIRUS DISEASE 2019 Status: Acute (3) Diabetes Code(s): E11.9 - TYPE 2 DIABETES MELLITUS WITHOUT COMPLICATIONS Status: Acute - Plan will continue steroids. pt on dvt ppx. will start pt on oral inhaler. pt not a candidate for remdesivir. 2/ pt now on high flow. he is eating i did call pt's daughter and updated her. 2/3 patient is on high flow sats are 98% when he sits up. I have asked the nurse to lower the FiO2. Patient's inflammatory markers are improving. He is eating. Will encourage to use incentive spirometer we will continue to monitor continue Lovenox twice daily dosing 2/4 continue high flow as nursing staff to continue to titrate oxygen down. Patient clinically appears well. We will continue to trend CRP. Patient on DVT prophylaxis. Hemoglobin A1c of 6.5. We will add low-dose insulin. Sugars are high most likely secondary to steroids and additional to his new diagnosed diabetes 2/5 patient's FiO2 decreased to 55% per nursing staff. His CRP continues to trend upwards. However clinically he appears to be improving. Patient encouraged to use incentive spirometer.
[2020-11-27] MEDS: Mometasone 200 MCG/Formoterol 5 MCG 120 PUFF INHALER INH SCH ×2 (05:24→17:26)
[2020-11-27] MEDS: Dexamethasone 4 mg/ml Vial SLOW IVP SCH (09:23)
[2020-11-27] MEDS: Insulin Glargine 4 UNITS in Pre-Filled Syringe 1 EACH SC SCH (09:23)
[2020-11-27] MEDS: Enoxaparin Sodium 40 MG/0.4 ML SYRINGE SC SCH ×2 (09:23→20:27)
[2020-11-27] MEDS: Colchicine 0.6 MG TAB PO SCH ×2 (09:23→20:27)
[2020-11-27] MEDS: HumaLOG 300 UNITS/3 ML VIAL SC PRN ×3 (13:44→21:41)
--- NOTE | 2020-11-27 18:57 | PDOC.HOSPP ---
- Subjective Encounter Date: 11/27/20 Encounter Time: 10:30 Subjective: pt up in bed no complains - Objective Vital Signs & Weight: Vital Signs (12 hours) Temp Pulse Resp BP Pulse Ox 11/27/20 16:10 98.4 F 67 18 108/62 96 11/27/20 15:30 92 L 11/27/20 11:42 98.8 F 84 20 98/61 95 11/27/20 09:00 92 L 11/27/20 08:14 97.5 F L 70 20 105/67 94 L 11/27/20 07:39 90 L Weight Weight 156 lb I&O: 11/26/20 11/27/20 11/28/20 06:59 06:59 06:59 Intake Total 500 400 800 Output Total 850 600 200 Balance -350 -200 600 Result Diagrams: 11/26/20 04:26 11/26/20 04:26 Additional Labs: Accuchecks 11/27/20 11/27/20 11/27/20 16:09 11:41 06:10 POC Glucose 241 H 154 H 104 H 11/26/20 20:47 POC Glucose 199 H Hospitalist ROS - Review of Systems Respiratory: denies: cough, dry, shortness of breath, hemoptysis, SOB with excertion, pleuritic pain, sputum, wheezing, other Cardiovascular: denies: chest pain, palpitations, orthopnea, paroxysmal noc. dyspnea, edema, light headedness, other Gastrointestinal: denies: nausea, vomiting, abdominal pain, diarrhea, constipation, melena, hematochezia, other - Medication Medications: Active Medications Generic Name Dose Route Start Last Admin Trade Name Sam PRN Reason Stop Dose Admin Acetaminophen 650 mg 11/23/20 10:05 11/25/20 07:37 Acetaminophen 325 Mg Tab PO 650 mg Q8H PRN Administration Mild-Moderate Pain (1-5) Colchicine 0.6 mg 11/24/20 21:00 11/27/20 09:23 Colchicine 0.6 Mg Tab PO 0.6 mg BID ROD Administration Dexamethasone 6 mg 11/22/20 09:00 11/27/20 09:23 Dexamethasone 4 Mg/Ml Vial SLOW IVP 6 mg DAILY ROD Administration Enoxaparin Sodium 40 mg 11/21/20 21:00 11/27/20 09:23 Enoxaparin Sodium 40 Mg/0.4 Ml Syringe SC 40 mg BID ROD Administration Doxycycline Hyclate 100 mg/ 100 mls @ 100 mls/hr 11/24/20 17:00 11/27/20 17:25 Sodium Chloride IVPB 100 mls 0500,1700 ROD Administration Insulin Glargine 4 units/ 0.04 mls @ 0 mls/hr 11/27/20 09:00 11/27/20 09:23 Miscellaneous Medication SC 0.04 mls QAM ROD Administration Insulin Human Lispro 0 units 11/25/20 09:57 11/27/20 17:26 Humalog 300 Units/3 Ml Vial SC 3 unit .MILD SLIDING SCALE PRN Administration Mild Correctional Scale Mometasone Furoate/Formoterol Fumar 2 puff 11/21/20 18:30 11/27/20 17:26 Mometasone 200 Mcg/Formoterol 5 Mcg 120 Puff Inhaler INH 2 puff BID-RT ROD Administration Pantoprazole Sodium 40 mg 11/22/20 09:00 11/27/20 09:23 Pantoprazole 40 Mg Tab PO 40 mg DAILY ROD Administration Hospitalist Exam Vitals: Vital Signs (12 hours) Temp Pulse Resp BP Pulse Ox 11/27/20 16:10 98.4 F 67 18 108/62 96 11/27/20 15:30 92 L 11/27/20 11:42 98.8 F 84 20 98/61 95 11/27/20 09:00 92 L 11/27/20 08:14 97.5 F L 70 20 105/67 94 L 11/27/20 07:39 90 L Weight Weight 156 lb Neck: supple Heart: no murmur Respiratory: no wheezes, no rales Gastrointestinal: soft, non-distended Hosp A/P (1) Acute respiratory failure with hypoxia Code(s): J96.01 - ACUTE RESPIRATORY FAILURE WITH HYPOXIA Status: Acute (2) Pneumonia due to COVID-19 virus Code(s): U07.1 - COVID-19; J12.82 - PNEUMONIA DUE TO CORONAVIRUS DISEASE 2019 Status: Acute (3) Diabetes Code(s): E11.9 - TYPE 2 DIABETES MELLITUS WITHOUT COMPLICATIONS Status: Acute - Plan will continue steroids. pt on dvt ppx. will start pt on oral inhaler. pt not a candidate for remdesivir. 11/22 pt now on high flow. he is eating i did call pt's daughter and updated her. 11/24 patient is on high flow sats are 98% when he sits up. I have asked the nurse to lower the FiO2. Patient's inflammatory markers are improving. He is eating. Will encourage to use incentive spirometer we will continue to monitor continue Lovenox twice daily dosing / continue high flow as nursing staff to continue to titrate oxygen down. Patient clinically appears well. We will continue to trend CRP. Patient on DVT prophylaxis. Hemoglobin A1c of 6.5. We will add low-dose insulin. Sugars are high most likely secondary to steroids and additional to his new diagnosed diabetes 11/26 patient's FiO2 decreased to 55% per nursing staff. His CRP continues to trend upwards. However clinically he appears to be improving. Patient encouraged to use incentive spirometer. 11/27 patient continues to be weaned off FiO2. Per nursing staff they did try the nasal cannula patient's significantly desatted. We will continue to trend inflammatory markers. You okay
[2020-11-28 05:30] LABS: Prothrombin Time 12.8 sec (12.0-14.7)
[2020-11-28 05:31] LABS: PTT 32.5 sec (22.9-36.1)
[2020-11-28 05:35] LABS: #Eosinphils 0.2 thou/uL (0.0-0.7); #Lymphocytes 1.4 thou/uL (1.20-3.40); #Monocytes 0.8 thou/uL (0.11-0.59); #Neutrophils 8.3 thou/uL (1.40-6.50); %Basophils 0.2 % (0.0-1.0); %Eosinophils 2.1 % (0.0-10.0); %Lymphocytes 12.9 % (21.0-51.0); %Monocytes 7.5 % (0.0-10.0); %Neutrophils 77.4 % (42.0-75.0); Hemoglobin 14.4 g/dL (14.0-18.0); Mean Corpuscular HGB CONC 32.7 g/dL (32.0-36.0); Mean Corpuscular Hemoglobin 29.5 pg (27.0-31.0); Mean Platelet Volume 8.2 fL (7.4-10.4); Platelet Count 553 thou/uL (130-400); RBC Distribution Width 12.3 % (11.5-14.5); Red Blood Cell (RBC) Count 4.87 mill/uL (4.70-6.10); White Blood Cell (WBC) Count 10.7 thou/uL (4.8-10.8)
[2020-11-28 05:49] LABS: Anion Gap 12 mmol/L (10-20); BUN (Urea Nitrogen) 18 mg/dL (8.4-25.7); CRP (Inflammatory) 5.96 mg/dL (= or < 0.5); Calc. Creatinine Clearance 107 mL/min (70-130); Calcium 8.3 mg/dL (7.8-10.44); Carbon Dioxide 21 mmol/L (23-31); Chloride 107 mmol/L (98-107); Glucose 98 mg/dL (80-115); Potassium 3.9 mmol/L (3.5-5.1); Sodium 136 mmol/L (136-145)
[2020-11-28] MEDS: Mometasone 200 MCG/Formoterol 5 MCG 120 PUFF INHALER INH SCH ×2 (06:54→17:38)
[2020-11-28] MEDS: Colchicine 0.6 MG TAB PO SCH ×2 (07:52→20:37)
[2020-11-28] MEDS: Enoxaparin Sodium 40 MG/0.4 ML SYRINGE SC SCH ×2 (07:52→20:37)
[2020-11-28] MEDS: Dexamethasone 4 mg/ml Vial SLOW IVP SCH (07:53)
[2020-11-28] MEDS: Insulin Glargine 4 UNITS in Pre-Filled Syringe 1 EACH SC SCH (09:36)
--- NOTE | 2020-11-28 12:11 | PDOC.HOSPP ---
- Subjective Encounter Date: 11/28/20 Encounter Time: 11:30 Subjective: pt up in bed now on NC. He feels well. - Objective Vital Signs & Weight: Vital Signs (12 hours) Temp Pulse Resp BP Pulse Ox 11/28/20 08:00 98.2 F 74 20 113/71 96 11/28/20 07:41 94 L 11/28/20 04:00 98.8 F 69 24 H 136/79 92 L 11/28/20 03:41 95 Weight Weight 156 lb I&O: 11/27/20 11/28/20 11/29/20 06:59 06:59 06:59 Intake Total 400 800 Output Total 600 200 Balance -200 600 Result Diagrams: 11/28/20 04:59 11/28/20 04:59 Additional Labs: Accuchecks 11/28/20 11/27/20 11/27/20 04:49 20:35 16:09 POC Glucose 96 231 H 241 H Hospitalist ROS - Review of Systems Cardiovascular: denies: chest pain, palpitations, orthopnea, paroxysmal noc. dyspnea, edema, light headedness, other Gastrointestinal: denies: nausea, vomiting, abdominal pain, diarrhea, constipation, melena, hematochezia, other Genitourinary: denies: dysuria, frequency, incontinence, hematuria, retention, other - Medication Medications: Active Medications Generic Name Dose Route Start Last Admin Trade Name Freq PRN Reason Stop Dose Admin Acetaminophen 650 mg 11/23/20 10:05 11/25/20 07:37 Acetaminophen 325 Mg Tab PO 650 mg Q8H PRN Administration Mild-Moderate Pain (1-5) Colchicine 0.6 mg 11/24/20 21:00 11/28/20 07:52 Colchicine 0.6 Mg Tab PO 0.6 mg BID ROD Administration Dexamethasone 6 mg 11/22/20 09:00 11/28/20 07:53 Dexamethasone 4 Mg/Ml Vial SLOW IVP 6 mg DAILY ROD Administration Enoxaparin Sodium 40 mg 11/21/20 21:00 11/28/20 07:52 Enoxaparin Sodium 40 Mg/0.4 Ml Syringe SC 40 mg BID ROD Administration Doxycycline Hyclate 100 mg/ 100 mls @ 100 mls/hr 11/24/20 17:00 11/28/20 04:40 Sodium Chloride IVPB 100 mls 0500,1700 ROD Administration Insulin Glargine 4 units/ 0.04 mls @ 0 mls/hr 11/27/20 09:00 11/28/20 09:36 Miscellaneous Medication SC 0.04 mls QAM ROD Administration Insulin Human Lispro 0 units 11/25/20 09:57 11/27/20 21:41 Humalog 300 Units/3 Ml Vial SC 3 unit .MILD SLIDING SCALE PRN Administration Mild Correctional Scale Mometasone Furoate/Formoterol Fumar 2 puff 11/21/20 18:30 11/28/20 06:54 Mometasone 200 Mcg/Formoterol 5 Mcg 120 Puff Inhaler INH 2 puff BID-RT ROD Administration Pantoprazole Sodium 40 mg 11/22/20 09:00 11/28/20 07:53 Pantoprazole 40 Mg Tab PO 40 mg DAILY ROD Administration Hospitalist Exam Vitals: Vital Signs (12 hours) Temp Pulse Resp BP Pulse Ox 11/28/20 08:00 98.2 F 74 20 113/71 96 11/28/20 07:41 94 L 11/28/20 04:00 98.8 F 69 24 H 136/79 92 L 11/28/20 03:41 95 Weight Weight 156 lb Neck: supple Heart: no murmur, no gallops Respiratory: no wheezes, no rales Gastrointestinal: soft, non-tender, normal bowel sounds Extremities: 1+ LE edema Hosp A/P (1) Acute respiratory failure with hypoxia Code(s): J96.01 - ACUTE RESPIRATORY FAILURE WITH HYPOXIA Status: Acute (2) Pneumonia due to COVID-19 virus Code(s): U07.1 - COVID-19; J12.82 - PNEUMONIA DUE TO CORONAVIRUS DISEASE 2019 Status: Acute (3) Diabetes Code(s): E11.9 - TYPE 2 DIABETES MELLITUS WITHOUT COMPLICATIONS Status: Acute - Plan will continue steroids. pt on dvt ppx. will start pt on oral inhaler. pt not a candidate for remdesivir. 11/22 pt now on high flow. he is eating i did call pt's daughter and updated her. 11/24 patient is on high flow sats are 98% when he sits up. I have asked the nurse to lower the FiO2. Patient's inflammatory markers are improving. He is eating. Will encourage to use incentive spirometer we will continue to monitor continue Lovenox twice daily dosing 11/25 continue high flow as nursing staff to continue to titrate oxygen down. Patient clinically appears well. We will continue to trend CRP. Patient on DVT prophylaxis. Hemoglobin A1c of 6.5. We will add low-dose insulin. Sugars are high most likely secondary to steroids and additional to his new diagnosed diabetes 11/26 patient's FiO2 decreased to 55% per nursing staff. His CRP continues to trend upwards. However clinically he appears to be improving. Patient encouraged to use incentive spirometer. 11/27 patient continues to be weaned off FiO2. Per nursing staff they did try the nasal cannula patient's significantly desatted. We will continue to trend inflammatory markers. 11/28 pt up in bed feels well. pt on NC on 4L doing well. Possible home in am if he does well overnight.
[2020-11-28] MEDS: HumaLOG 300 UNITS/3 ML VIAL SC PRN ×2 (12:14→17:33)
[2020-11-29] MEDS: Mometasone 200 MCG/Formoterol 5 MCG 120 PUFF INHALER INH SCH ×2 (05:58→16:42)
[2020-11-29] MEDS: Insulin Glargine 4 UNITS in Pre-Filled Syringe 1 EACH SC SCH (08:26)
[2020-11-29] MEDS: Enoxaparin Sodium 40 MG/0.4 ML SYRINGE SC SCH ×2 (08:27→21:30)
[2020-11-29] MEDS: Dexamethasone 4 mg/ml Vial SLOW IVP SCH (08:28)
[2020-11-29] MEDS: Colchicine 0.6 MG TAB PO SCH ×2 (08:28→23:27)
[2020-11-29] MEDS: HumaLOG 300 UNITS/3 ML VIAL SC PRN (16:39)
--- NOTE | 2020-11-29 18:28 | PDOC.HOSPP ---
- Subjective Encounter Date: 11/29/20 Encounter Time: 12:00 (12) Subjective: Patient seen for follow-up regarding acute hypoxic respiratory failure. Patient reports feeling well. - Objective Vital Signs & Weight: Vital Signs (12 hours) Temp Pulse Resp BP Pulse Ox 11/29/20 15:51 98.1 F 78 24 H 104/57 L 95 11/29/20 11:46 96 11/29/20 11:00 98.7 F 76 20 105/65 98 11/29/20 08:03 95 11/29/20 07:12 98.4 F 69 20 118/70 95 Weight Weight 156 lb I&O: 11/28/20 11/29/20 11/30/20 06:59 06:59 06:59 Intake Total 800 480 Output Total 200 1050 Balance 600 -570 Result Diagrams: 11/28/20 04:59 11/28/20 04:59 Additional Labs: Accuchecks 11/29/20 11/29/20 11/29/20 16:32 10:07 05:44 POC Glucose 180 H 172 H 89 11/28/20 20:37 POC Glucose 131 H Hospitalist ROS - Review of Systems Cardiovascular: denies: chest pain, palpitations, orthopnea, paroxysmal noc. dyspnea, edema, light headedness Gastrointestinal: denies: nausea, vomiting, abdominal pain, diarrhea, constipation, melena, hematochezia - Medication Medications: Active Medications Generic Name Dose Route Start Last Admin Trade Name Freq PRN Reason Stop Dose Admin Acetaminophen 650 mg 11/23/20 10:05 11/25/20 07:37 Acetaminophen 325 Mg Tab PO 650 mg Q8H PRN Administration Mild-Moderate Pain (1-5) Colchicine 0.6 mg 11/24/20 21:00 11/29/20 08:28 Colchicine 0.6 Mg Tab PO 0.6 mg BID ROD Administration Dexamethasone 6 mg 11/22/20 09:00 11/29/20 08:28 Dexamethasone 4 Mg/Ml Vial SLOW IVP 6 mg DAILY ROD Administration Enoxaparin Sodium 40 mg 11/21/20 21:00 11/29/20 08:27 Enoxaparin Sodium 40 Mg/0.4 Ml Syringe SC 40 mg BID ROD Administration Doxycycline Hyclate 100 mg/ 100 mls @ 100 mls/hr 11/24/20 17:00 11/29/20 16:05 Sodium Chloride IVPB 100 mls 0500,1700 ROD Administration Insulin Glargine 4 units/ 0.04 mls @ 0 mls/hr 11/27/20 09:00 11/29/20 08:26 Miscellaneous Medication SC 0.04 mls QAM ROD Administration Insulin Human Lispro 0 units 11/25/20 09:57 11/29/20 16:39 Humalog 300 Units/3 Ml Vial SC 2 unit .MILD SLIDING SCALE PRN Administration Mild Correctional Scale Mometasone Furoate/Formoterol Fumar 2 puff 11/21/20 18:30 11/29/20 16:42 Mometasone 200 Mcg/Formoterol 5 Mcg 120 Puff Inhaler INH 2 puff BID-RT ROD Administration Pantoprazole Sodium 40 mg 11/22/20 09:00 11/29/20 08:28 Pantoprazole 40 Mg Tab PO 40 mg DAILY ROD Administration Hospitalist Exam Vitals: Vital Signs (12 hours) Temp Pulse Resp BP Pulse Ox 11/29/20 15:51 98.1 F 78 24 H 104/57 L 95 11/29/20 11:46 96 11/29/20 11:00 98.7 F 76 20 105/65 98 11/29/20 08:03 95 11/29/20 07:12 98.4 F 69 20 118/70 95 Weight Weight 156 lb General Appearance: awake alert Eye: anicteric sclera ENT: normocephalic atraumatic Neck: supple, no lymphadenopathy Heart: RRR Respiratory: rhonchi Gastrointestinal: soft, non-tender Skin: no rashes Psychiatric: normal affect Hosp A/P - Plan (1) Acute respiratory failure with hypoxia Code(s): J96.01 - ACUTE RESPIRATORY FAILURE WITH HYPOXIA Status: Acute (2) Pneumonia due to COVID-19 virus Code(s): U07.1 - COVID-19; J12.82 - PNEUMONIA DUE TO CORONAVIRUS DISEASE 2019 Status: Acute (3) Diabetes Code(s): E11.9 - TYPE 2 DIABETES MELLITUS WITHOUT COMPLICATIONS Status: Acute - Plan will continue steroids. pt on dvt ppx. will start pt on oral inhaler. pt not a candidate for remdesivir. 11/22 pt now on high flow. he is eating i did call pt's daughter and updated her. 11/24 patient is on high flow sats are 98% when he sits up. I have asked the nurse to lower the FiO2. Patient's inflammatory markers are improving. He is eating. Will encourage to use incentive spirometer we will continue to monitor continue Lovenox twice daily dosing 11/25 continue high flow as nursing staff to continue to titrate oxygen down. Patient clinically appears well. We will continue to trend CRP. Patient on DVT prophylaxis. Hemoglobin A1c of 6.5. We will add low-dose insulin. Sugars are high most likely secondary to steroids and additional to his new diagnosed diabetes 11/26 patient's FiO2 decreased to 55% per nursing staff. His CRP continues to trend upwards. However clinically he appears to be improving. Patient encouraged to use incentive spirometer. 11/27 patient continues to be weaned off FiO2. Per nursing staff they did try the nasal cannula patient's significantly desatted. We will continue to trend inflammatory markers. 11/28 pt up in bed feels well. pt on NC on 4L doing well. Possible home in am if he does well overnight. 11/29: Patient is on 6 L/min of oxygen via nasal cannula. Continue to try to wean him off of oxygen or decreased oxygen requirement.
[2020-11-30] MEDS: Mometasone 200 MCG/Formoterol 5 MCG 120 PUFF INHALER INH SCH ×2 (07:40→17:53)
[2020-11-30] MEDS: Colchicine 0.6 MG TAB PO SCH ×2 (08:12→20:22)
[2020-11-30] MEDS: Enoxaparin Sodium 40 MG/0.4 ML SYRINGE SC SCH ×2 (08:12→20:22)
[2020-11-30] MEDS: Dexamethasone 4 mg/ml Vial SLOW IVP SCH (08:13)
[2020-11-30] MEDS: Insulin Glargine 4 UNITS in Pre-Filled Syringe 1 EACH SC SCH (09:33)
[2020-11-30] MEDS: HumaLOG 300 UNITS/3 ML VIAL SC PRN ×2 (11:40→17:55)
--- NOTE | 2020-11-30 17:28 | PDOC.HOSPP ---
- Subjective Encounter Date: 11/30/20 Encounter Time: 10:00 Subjective: Seen for follow-up for hypoxic respiratory failure. Denies any new complaints. - Objective Vital Signs & Weight: Vital Signs (12 hours) Temp Pulse Resp BP BP Pulse Ox 11/30/20 15:50 97.6 F 69 28 H 124/68 95 11/30/20 12:00 98.4 F 72 15 113/61 95 11/30/20 09:57 96 11/30/20 09:45 82 L 11/30/20 08:24 94 L 11/30/20 08:00 98 F 67 22 H 102/64 93 L Weight Admit Weight 154 lb Weight 156 lb I&O: 11/29/20 11/30/20 12/01/20 06:59 06:59 06:59 Intake Total 480 Output Total 1050 825 Balance -570 -825 Result Diagrams: 11/28/20 04:59 11/28/20 04:59 Additional Labs: Accuchecks 11/30/20 11/30/20 11/30/20 16:59 10:56 05:36 POC Glucose 166 H 183 H 105 H 11/29/20 20:19 POC Glucose 192 H Labs and MAR reviewed by me EKG Reviewed by me: Yes (Telemetry shows normal sinus rhythm) Hospitalist ROS - Review of Systems Respiratory: reports: cough, dry Cardiovascular: denies: chest pain, palpitations, orthopnea, paroxysmal noc. dyspnea, edema, light headedness Skin: denies: rash, lesions, davina, bruising - Medication Medications: Active Medications Generic Name Dose Route Start Last Admin Trade Name Sam PRN Reason Stop Dose Admin Acetaminophen 650 mg 11/23/20 10:05 11/25/20 07:37 Acetaminophen 325 Mg Tab PO 650 mg Q8H PRN Administration Mild-Moderate Pain (1-5) Colchicine 0.6 mg 11/24/20 21:00 11/30/20 08:12 Colchicine 0.6 Mg Tab PO 0.6 mg BID ROD Administration Dexamethasone 6 mg 11/22/20 09:00 11/30/20 08:13 Dexamethasone 4 Mg/Ml Vial SLOW IVP 6 mg DAILY ROD Administration Enoxaparin Sodium 40 mg 11/21/20 21:00 11/30/20 08:12 Enoxaparin Sodium 40 Mg/0.4 Ml Syringe SC 40 mg BID ROD Administration Doxycycline Hyclate 100 mg/ 100 mls @ 100 mls/hr 11/24/20 17:00 11/30/20 06:41 Sodium Chloride IVPB 100 mls 0500,1700 ROD Administration Insulin Glargine 4 units/ 0.04 mls @ 0 mls/hr 11/27/20 09:00 11/30/20 09:33 Miscellaneous Medication SC 0.04 mls QAM ROD Administration Insulin Human Lispro 0 units 11/25/20 09:57 11/30/20 11:40 Humalog 300 Units/3 Ml Vial SC 2 unit .MILD SLIDING SCALE PRN Administration Mild Correctional Scale Mometasone Furoate/Formoterol Fumar 2 puff 11/21/20 18:30 11/30/20 07:40 Mometasone 200 Mcg/Formoterol 5 Mcg 120 Puff Inhaler INH 2 puff BID-RT ROD Administration Pantoprazole Sodium 40 mg 11/22/20 09:00 11/30/20 08:12 Pantoprazole 40 Mg Tab PO 40 mg DAILY ROD Administration Hospitalist Exam Vitals: Vital Signs (12 hours) Temp Pulse Resp BP BP Pulse Ox 11/30/20 15:50 97.6 F 69 28 H 124/68 95 11/30/20 12:00 98.4 F 72 15 113/61 95 11/30/20 09:57 96 11/30/20 09:45 82 L 11/30/20 08:24 94 L 11/30/20 08:00 98 F 67 22 H 102/64 93 L Weight Admit Weight 154 lb Weight 156 lb General Appearance: awake alert Eye: anicteric sclera ENT: moist mucosa Neck: supple Heart: RRR Respiratory: rhonchi Gastrointestinal: soft, non-tender Skin: no rashes Musculoskeletal: normal tone Psychiatric: normal affect, normal behavior Hosp A/P - Plan (1) Acute respiratory failure with hypoxia Code(s): J96.01 - ACUTE RESPIRATORY FAILURE WITH HYPOXIA Status: Acute (2) Pneumonia due to COVID-19 virus Code(s): U07.1 - COVID-19; J12.82 - PNEUMONIA DUE TO CORONAVIRUS DISEASE 2019 Status: Acute (3) Diabetes Code(s): E11.9 - TYPE 2 DIABETES MELLITUS WITHOUT COMPLICATIONS Status: Acute - Plan will continue steroids. pt on dvt ppx. will start pt on oral inhaler. pt not a candidate for remdesivir. 11/22 pt now on high flow. he is eating i did call pt's daughter and updated her. 11/24 patient is on high flow sats are 98% when he sits up. I have asked the nurse to lower the FiO2. Patient's inflammatory markers are improving. He is eating. Will encourage to use incentive spirometer we will continue to monitor continue Lovenox twice daily dosing 11/25 continue high flow as nursing staff to continue to titrate oxygen down. Patient clinically appears well. We will continue to trend CRP. Patient on DVT prophylaxis. Hemoglobin A1c of 6.5. We will add low-dose insulin. Sugars are high most likely secondary to steroids and additional to his new diagnosed d iabetes 11/26 patient's FiO2 decreased to 55% per nursing staff. His CRP continues to trend upwards. However clinically he appears to be improving. Patient encouraged to use incentive spirometer. 11/27 patient continues to be weaned off FiO2. Per nursing staff they did try the nasal cannula patient's significantly desatted. We will continue to trend inflammatory markers. 11/28 pt up in bed feels well. pt on NC on 4L doing well. Possible home in am if he does well overnight. 11/29: Patient is on 6 L/min of oxygen via nasal cannula. Continue to try to wean him off of oxygen or decreased oxygen requirement. 11/30: Patient continues to be on 6 L/min of oxygen, trying to wean off of oxygen.
[2020-11-30] MEDS ORDERED: HumaLOG 300 UNITS/3 ML VIAL SC PRN (20:51)
[2020-12-01] MEDS: Mometasone 200 MCG/Formoterol 5 MCG 120 PUFF INHALER INH SCH ×2 (05:18→19:30)
[2020-12-01] MEDS: Insulin Glargine 4 UNITS in Pre-Filled Syringe 1 EACH SC SCH (08:27)
[2020-12-01] MEDS: Dexamethasone 4 mg/ml Vial SLOW IVP SCH (08:27)
[2020-12-01] MEDS: Enoxaparin Sodium 40 MG/0.4 ML SYRINGE SC SCH (08:27)
[2020-12-01] MEDS: Colchicine 0.6 MG TAB PO SCH (08:27)
[2020-12-01] MEDS: HumaLOG 300 UNITS/3 ML VIAL SC PRN (11:27)
--- NOTE | 2020-12-01 13:28 | PDOC.DS.DS ---
Provider Date of Admission: 11/20/20 11:28 Date of Discharge: 12/01/20 Admitting Provider: Neal Suresh MD Course Hospital Course: Discharge diagnosis: 1. Acute hypoxic respiratory failure 2. COVID-19 pneumonia 3. Mediastinal and hilar lymphadenopathy, likely reactive in origin 4. Mild cardiomegaly 5. Hyponatremia Hospital course: Patient is a pleasant 62-year-old gentleman who was admitted to the hospital on November 19, 2020 for acute hypoxic respiratory failure secondary to COVID-19 pneumonia. He was treated with dexamethasone and colchicine. Patient was not a candidate for remdesivir. She was treated with high flow oxygen, eventually titrated down to oxygen by nasal cannula. He qualified for home oxygen. He is being discharged home in a stable condition. Patient's blood sugars were elevated during this hospitalization. Steroids are being discontinued at the time of discharge. He has been advised to follow-up with his primary care provider for further management. Hemoglobin A1c was 7.0. Many thanks for allowing me to participate in your patient's care. Please feel free to contact me with any questions or concerns. Discharge destination: Home Total amount of time spent coordinating this discharge: 31 minutes Lab Results: 11/28/20 04:59 11/28/20 04:59 Vitals: Vital Signs (12 hours) Temp Pulse Resp BP BP Pulse Ox 12/01/20 11:35 98.8 F 82 20 110/68 99 12/01/20 08:46 97.9 F 77 21 H 127/77 93 L 12/01/20 04:30 98.1 F 65 19 118/71 92 L 12/01/20 01:55 97.9 F 67 15 113/67 93 L Weight Admit Weight 154 lb Weight 156 lb Physical Exam: The patient was seen and examined on the day of discharge. Patient denies chest pain or shortness of breath. Vital signs are stable. S1 and S2 are heard. Lungs are clear to auscultation bilaterally. Plan Home Medications: Medication Instructions Recorded Confirmed Type No Known 11/19/20 11/19/20 History Allergies: No Known Allergies Allergy (Verified 11/19/20 20:17) per pt Discharge Instructions:: Obtain a pulse oximeter and check your oxygen levels 3 times a day and whenever feeling short of breath. Seek medical attention for oxygen levels less than 90%. Resume your home medications. Referrals: PROVIDER,NO PCP [MD Not on Staff] - 3 Days Disposition: HOME Quality CORE MEASURES:: N/A
--- NOTE | 2020-12-01 16:34 | PDOC.HOSPP ---
- Subjective Encounter Date: 12/01/20 Encounter Time: 09:30 Subjective: Patient seen for follow-up regarding hypoxic respiratory failure. He denies any complaints today. - Objective Vital Signs & Weight: Vital Signs (12 hours) Temp Pulse Resp BP Pulse Ox 12/01/20 11:35 98.8 F 82 20 110/68 99 12/01/20 08:46 97.9 F 77 21 H 127/77 93 L Weight Admit Weight 154 lb Weight 156 lb I&O: 11/30/20 12/01/20 12/02/20 06:59 06:59 06:59 Intake Total 900 Output Total 1075 800 Balance -175 -800 Result Diagrams: 11/28/20 04:59 11/28/20 04:59 Additional Labs: Accuchecks 12/01/20 12/01/20 12/01/20 16:24 10:58 05:25 POC Glucose 138 H 241 H 113 H 12/01/20 11/30/20 11/30/20 04:44 20:28 16:59 POC Glucose 95 211 H 166 H I reviewed patient's labs and MAR EKG Reviewed by me: Yes (Normal sinus rhythm on telemetry) Hospitalist ROS - Review of Systems Respiratory: denies: cough, shortness of breath, SOB with excertion, pleuritic pain Gastrointestinal: denies: nausea, vomiting, abdominal pain, diarrhea, constipation, melena, hematochezia Genitourinary: denies: dysuria, frequency, incontinence, hematuria, retention - Medication Medications: Active Medications Generic Name Dose Route Start Last Admin Trade Name Freq PRN Reason Stop Dose Admin Acetaminophen 650 mg 11/23/20 10:05 11/25/20 07:37 Acetaminophen 325 Mg Tab PO 650 mg Q8H PRN Administration Mild-Moderate Pain (1-5) Colchicine 0.6 mg 11/24/20 21:00 12/01/20 08:27 Colchicine 0.6 Mg Tab PO 0.6 mg BID ROD Administration Dexamethasone 6 mg 11/22/20 09:00 12/01/20 08:27 Dexamethasone 4 Mg/Ml Vial SLOW IVP 6 mg DAILY ROD Administration Enoxaparin Sodium 40 mg 11/21/20 21:00 12/01/20 08:27 Enoxaparin Sodium 40 Mg/0.4 Ml Syringe SC 40 mg BID ROD Administration Doxycycline Hyclate 100 mg/ 100 mls @ 100 mls/hr 11/24/20 17:00 12/01/20 05:17 Sodium Chloride IVPB 100 mls 0500,1700 ROD Administration Insulin Glargine 4 units/ 0.04 mls @ 0 mls/hr 11/27/20 09:00 12/01/20 08:27 Miscellaneous Medication SC 0.04 mls QAM ROD Administration Insulin Human Lispro 0 units 11/25/20 09:57 12/01/20 11:27 Humalog 300 Units/3 Ml Vial SC 3 unit .MILD SLIDING SCALE PRN Administration Mild Correctional Scale Insulin Human Lispro 0 units 11/30/20 20:51 11/30/20 22:03 Humalog 300 Units/3 Ml Vial SC 2 unit .BEDTIME SLIDING SC PRN Administration Bedtime Correctional Scale Mometasone Furoate/Formoterol Fumar 2 puff 11/21/20 18:30 12/01/20 05:18 Mometasone 200 Mcg/Formoterol 5 Mcg 120 Puff Inhaler INH Not Given BID-RT ROD Pantoprazole Sodium 40 mg 11/22/20 09:00 12/01/20 08:27 Pantoprazole 40 Mg Tab PO 40 mg DAILY ROD Administration Hospitalist Exam Vitals: Vital Signs (12 hours) Temp Pulse Resp BP Pulse Ox 12/01/20 11:35 98.8 F 82 20 110/68 99 12/01/20 08:46 97.9 F 77 21 H 127/77 93 L Weight Admit Weight 154 lb Weight 156 lb General Appearance: awake alert Eye: anicteric sclera ENT: no oropharyngeal lesions Neck: no thyromegaly Heart: RRR Respiratory: CTAB Gastrointestinal: soft, non-tender Skin: no rashes Psychiatric: normal affect, normal behavior Hosp A/P - Plan (1) Acute respiratory failure with hypoxia Code(s): J96.01 - ACUTE RESPIRATORY FAILURE WITH HYPOXIA Status: Acute (2) Pneumonia due to COVID-19 virus Code(s): U07.1 - COVID-19; J12.82 - PNEUMONIA DUE TO CORONAVIRUS DISEASE 2019 Status: Acute (3) Diabetes Code(s): E11.9 - TYPE 2 DIABETES MELLITUS WITHOUT COMPLICATIONS Status: Acute - Plan will continue steroids. pt on dvt ppx. will start pt on oral inhaler. pt not a candidate for remdesivir. 11/22 pt now on high flow. he is eating i did call pt's daughter and updated her. 11/24 patient is on high flow sats are 98% when he sits up. I have asked the nurse to lower the FiO2. Patient's inflammatory markers are improving. He is eating. Will encourage to use incentive spirometer we will continue to monitor continue Lovenox twice daily dosing 11/25 continue high flow as nursing staff to continue to titrate oxygen down. Patient clinically appears well. We will continue to trend CRP. Patient on DVT prophylaxis. Hemoglobin A1c of 6.5. We will add low-dose insulin. Sugars are high most likely secondary to steroids and additional to his new diagnosed diabetes 11/26 patient's FiO2 decreased to 55% per nursing staff. His CRP continues to trend upwards. However clinically he appears to be improving. Patient encouraged to use incentive spirometer. 11/27 patient continues to be weaned off FiO2. Per nursing staff they did try the nasal cannula patient's significantly desatted. We will continue to trend inflammatory markers. 11/28 pt up in bed feels well. pt on NC on 4L doing well. Possible home in am if he does well overnight. 11/29: Patient is on 6 L/min of oxygen via nasal cannula. Continue to try to wean him off of oxygen or decreased oxygen requirement. 11/30: Patient continues to be on 6 L/min of oxygen, trying to wean off of oxygen. 12/01: Patient needs 3 L/min of home oxygen. Trying to arrange home oxygen. Patient to be discharged once home oxygen is arranged.
[2020-12-01 16:49] VITALS: BP 109/72; TEMP 97.9
== END 2020-12-01 18:45 | disposition home or self-care (01) | DRG 177 ==
LOC: ERS 10:34 → 2SW 16:32 → OBSVTOIN 11-20 11:28
PROVIDERS: ADMIT Internal Medicine; ATTEND Internal Medicine
PROC: 8E0ZXY6 Isolation (ICD-10-PCS; principal; 2020-11-20)
DX: U07.1 COVID-19 (principal); J12.82 Pneumonia due to coronavirus disease 2019; J96.01 Acute respiratory failure with hypoxia; E87.1 Hypo-osmolality and hyponatremia; R04.2 Hemoptysis; R59.1 Generalized enlarged lymph nodes; R13.10 Dysphagia, unspecified; E86.0 Dehydration; E11.65 Type 2 diabetes mellitus with hyperglycemia; R74.01 Elevation of levels of liver transaminase levels; T38.0X5A Adverse effect of glucocorticoids and synthetic analogues, initial encounter; Z87.891 Personal history of nicotine dependence
CPT/HCPCS: 0240U; 36415; 36416; 71045; 71275; 80048; 80053; 80076; 82728; 83036; 83880; 84484; 85025; 85027; 85379; 85610; 85730; 86140; 93005; 94760; 96365; 96366; 96372; 96375; G0378; J0456; J0696; J1100; J1650; J1815; J3490; J8540; Q9967